=== PATIENT | female | born 1925 | race Caucasian/White ===

== ENCOUNTER 2016-11-22 00:24 | Inpatient (IN) | payer MEDICARE, MEDICAID ==
[~2016-11-22] VITALS: Ht 160 cm; Wt 88.0 kg
[2016-11-22] MEDS ORDERED: ACETAMINOPHEN 325MG TABLET PO STA (01:31)
[2016-11-22] MEDS ORDERED: NITROGLYCERIN 0.4MG TABLET SL SL PRN (01:45)
[2016-11-22] MEDS ORDERED: AZITHROMYCIN 500 MG in DEXT 5% WATER 250 ML IV ONE (01:45)
[2016-11-22] MEDS ORDERED: ACETAMINOPHEN 325MG TABLET PO PRN (01:45)
[2016-11-22] MEDS ORDERED: IPRATROPIUM/ALBUTEROL 0.5-3(2.5)MG/3ML NEB INH PRN (01:45)
[2016-11-22] MEDS ORDERED: MAGNESIUM/ALUMINUM HYDROXIDE/SIMETHICONE 30ML UDC PO PRN (01:45)
[2016-11-22] MEDS ORDERED: GUAIFENESIN 200MG/10ML SUGAR FREE UDC PO PRN (01:45)
[2016-11-22] MEDS ORDERED: MORPHINE SULFATE 4 MG/ML CPJ (NOT FOR IM USE) IV PRN (01:45)
[2016-11-22] MEDS ORDERED: ONDANSETRON HCL 4MG/2ML VIAL IV PRN (01:45)
[2016-11-22] MEDS ORDERED: TRAMADOL 50MG TABLET PO PRN (01:45)
[2016-11-22] MEDS ORDERED: CLONIDINE 0.1MG TABLET PO PRN (01:45)
[2016-11-22] MEDS ORDERED: CEFTRIAXONE 1 G PREMIX 50 ML IV ONE (01:45)
[2016-11-22 02:10] LABS: BG BASE EXCESS 2.5 mmol/L (-2.0-2.0); BG CARBOXYHEMOGLOBIN 0.5 % (0.5-1.5); BG DEOXYHEMOGLOBIN 4.8 % (0.0-5.0); BG FRACTION INSPIRED OXYGEN 28; BG METHEMOGLOBIN 0.3 % (0.0-1.5); BG OXYGEN SATURATION 95.2 % (92.0-98.5); BG OXYHEMOGLOBIN 94.4 % (94.0-97.0); BG PCO2 46.7 mmHg (35.0-45.0); BG PH 7.395 (7.350-7.450); BG PO2 77.6 mmHg (75.0-100.0); BG SAMPLE SITE RIGHT BRACHIAL; BG TOTAL HEMOGLOBIN 12.1 g/dL (12.0-18.0); BG VENT MODE NASAL CANNULA
[2016-11-22 02:19] LABS: CHLORIDE 91 mEq/L (98-107)
[2016-11-22 02:28] LABS: CARBON DIOXIDE 33 mEq/L (21-32); HDL CHOLESTEROL 49 mg/dL (40-59); LDL CHOLESTEROL 91 mg/dL (5-100)
[2016-11-22 02:31] LABS: BASOPHILS % 0.3 % (0.0-2.0); EOSINOPHILS % 0.2 % (0.0-5.0); HEMOGLOBIN. 11.8 g/dL (12.0-16.0); LYMPHOCYTES % 8.2 % (20.0-50.0); MEAN CORPUSCULAR VOLUME 100.3 fL (81.0-99.0); MEAN PLATELET VOLUME 8.5 fl (7.4-10.4); MONOCYTES % 4.7 % (2.0-8.0); NEUTROPHILS % 86.6 % (40.0-76.0); PLATELET 270 x1000/uL (130-400); RED BLOOD CELL COUNT 3.58 mill/uL (4.2-5.4); RED CELL DISTRIBUTION WIDTH 16.1 % (11.6-14.6)
[2016-11-22 04:05] LABS: CLARITY URINE CLEAR (CLEAR); COLOR URINE YELLOW (YELLOW); GLUCOSE URINE NEGATIVE (NEGATIVE); KETONES URINE NEGATIVE (NEGATIVE); LEUKOCYTE ESTERASE URINE NEGATIVE (NEGATIVE); NITRITE URINE NEGATIVE (NEGATIVE); OCCULT BLOOD URINE 1+ (NEGATIVE); PH URINE 5.5 (4.5-8.0); PROTEIN URINE 3+ (NEGATIVE); SPECIFIC GRAVITY URINE 1.017 (1.005-1.030); UROBILINOGEN URINE 0.2 E.U./dL (0.2-1.0)
[2016-11-22 06:25] LABS: CREATINE KINASE MB FRACTION 1.8 ng/mL (0.5-3.6)
[2016-11-22 07:08] LABS: TROPONIN I 0.53 ng/mL (0.00-0.04)
[2016-11-22] MEDS ORDERED: NA PHOS,M-B/NA PHOS,DI-BA ENEMA 118ML PR PRN (09:00)
[2016-11-22] MEDS ORDERED: CEFTRIAXONE 1 G PREMIX 50 ML IV SCH (09:00)
[2016-11-22] MEDS ORDERED: ASPIRIN 325MG EC TABLET PO SCH (09:00)
[2016-11-22 11:18] VITALS: BP 127/49
[2016-11-22 11:30] VITALS: BP 127/49
[2016-11-22] MEDS: ZINC SULFATE 220 MG ( 50 ) CAPSULE PO SCH (12:39)
[2016-11-22] MEDS: GUAIFENESIN/DM 600MG/30MG ER TAB 12HR PO SCH ×2 (12:39→20:52)
[2016-11-22] MEDS: PANTOPRAZOLE SODIUM 40 MG/VIAL IV SCH (12:39)
[2016-11-22] MEDS: DILTIAZEM HCL 30MG TABLET PO SCH ×2 (12:40→17:37)
[2016-11-22] MEDS: ENOXAPARIN 40MG/0.4ML SYR SUBCUT SCH (12:40)
[2016-11-22] MEDS: FUROSEMIDE 40MG/4ML VIAL IVP SCH (12:40)
[2016-11-22 15:35] LABS: CREATINE KINASE MB FRACTION 3.6 ng/mL (0.5-3.6)
[2016-11-22] MEDS ORDERED: AMLO2.5T45 PO (15:37)
[2016-11-22] MEDS ORDERED: ZOLP5TAB2 PO (15:37)
[2016-11-22] MEDS ORDERED: LOSA100T14 PO (15:37)
[2016-11-22] MEDS ORDERED: AMIT25TA9 PO (15:37)
[2016-11-22] MEDS ORDERED: FURO40TA5 PO (15:37)
[2016-11-22] MEDS ORDERED: ASPI-1159 PO (15:37)
[2016-11-22] MEDS ORDERED: HYDR-4134 PO (15:37)
[2016-11-22] MEDS ORDERED: ATOR10TA69 PO (15:37)
[2016-11-22 15:38] LABS: TROPONIN I 1.5 ng/mL (0.00-0.04)
[2016-11-22 16:00] VITALS: BP 132/55
[2016-11-22] MEDS: ASPIRIN 81MG EC TABLET PO SCH (17:37)
[2016-11-22] MEDS ORDERED: DEXTROSE 50% WATER 50ML SYRINGE IV PRN (18:45)
[2016-11-22 19:17] LABS: TOTAL IRON BINDING CAPACITY 338 ug/dL (250-450)
[2016-11-22 20:00] VITALS: BP 101/43
[2016-11-22] MEDS ORDERED: ZOLPIDEM TARTRATE 5MG TABLET PO PRN (20:00)
[2016-11-22] MEDS: INSULIN LISPRO 100 UNITS/ML SUBCUT SCH (20:15)
[2016-11-22] MEDS: BLOOD SUGAR DIAGNOSTIC STRIP TEST SCH (20:15)
[2016-11-22] MEDS: CEFTRIAXONE 1 G PREMIX 50 ML IV SCH (20:52)
[2016-11-22] MEDS: ZOLPIDEM TARTRATE 5MG TABLET PO PRN (20:52)
[2016-11-22] MEDS ORDERED: AZITHROMYCIN 500 MG in DEXT 5% WATER 250 ML IV SCH (22:00)
[2016-11-23] VITALS: BP 125/40
[2016-11-23] MEDS: DILTIAZEM HCL 30MG TABLET PO SCH ×6 (00:40→21:43)
[2016-11-23 04:00] VITALS: BP 136/51
[2016-11-23] MEDS: BLOOD SUGAR DIAGNOSTIC STRIP TEST SCH ×4 (06:20→21:53)
[2016-11-23 06:35] LABS: BASOPHILS % 0.4 % (0.0-2.0); EOSINOPHILS % 2.1 % (0.0-5.0); HEMATOCRIT. 31.2 % (36.0-48.0); HEMOGLOBIN. 10.2 g/dL (12.0-16.0); MEAN CORPUSCULAR HEMOGLOBIN 33.1 pg (28.0-32.0); MEAN CORPUSCULAR VOLUME 100.7 fL (81.0-99.0); MEAN PLATELET VOLUME 8.7 fl (7.4-10.4); NEUTROPHILS % 76.5 % (40.0-76.0); PLATELET 246 x1000/uL (130-400); RED CELL DISTRIBUTION WIDTH 16.4 % (11.6-14.6)
[2016-11-23 06:52] LABS: CARBON DIOXIDE 35 mEq/L (21-32); CHLORIDE 94 mEq/L (98-107); CREATINE KINASE MB FRACTION 2.7 ng/mL (0.5-3.6); LDL CHOLESTEROL 67 mg/dL (5-100)
[2016-11-23 07:07] LABS: CREATINE KINASE 111 IU/L (26-192); HDL CHOLESTEROL 45 mg/dL (40-59)
[2016-11-23 07:27] LABS: TROPONIN I 0.79 ng/mL (0.00-0.04)
[2016-11-23] MEDS: INSULIN LISPRO 100 UNITS/ML SUBCUT SCH ×4 (07:50→21:00)
[2016-11-23] MEDS: PANTOPRAZOLE SODIUM 40 MG/VIAL IV SCH (08:45)
[2016-11-23] MEDS: ENOXAPARIN 40MG/0.4ML SYR SUBCUT SCH (08:46)
[2016-11-23] MEDS: FUROSEMIDE 40MG/4ML VIAL IVP SCH (08:46)
[2016-11-23] MEDS: ZINC SULFATE 220 MG ( 50 ) CAPSULE PO SCH (08:46)
[2016-11-23] MEDS: ASPIRIN 81MG EC TABLET PO SCH ×2 (08:46→17:33)
[2016-11-23] MEDS: GUAIFENESIN/DM 600MG/30MG ER TAB 12HR PO SCH ×2 (08:48→21:41)
[2016-11-23 08:57] VITALS: BP 131/60
[2016-11-23 12:52] VITALS: BP 115/32
[2016-11-23] MEDS ORDERED: POTASSIUM CHLORIDE 20MEQ TABLET SR PO SCH (13:15)
[2016-11-23] MEDS: AZITHROMYCIN 500 MG in DEXT 5% WATER 250 ML IV SCH (15:09)
[2016-11-23 17:17] VITALS: BP 113/48
[2016-11-23] MEDS: ACYCLOVIR 400 MG TABLET PO SCH ×2 (17:34→21:51)
[2016-11-23 20:00] VITALS: BP 156/55
[2016-11-23] MEDS: ZOLPIDEM TARTRATE 5MG TABLET PO PRN (21:41)
[2016-11-23] MEDS: CEFTRIAXONE 1 G PREMIX 50 ML IV SCH (21:42)
[2016-11-24] VITALS: BP 133/52
[2016-11-24] MEDS: DIPHENHYDRAMINE 50MG/ML VIAL IV PRN (01:25)
[2016-11-24 04:00] VITALS: BP 129/66
[2016-11-24] MEDS: BLOOD SUGAR DIAGNOSTIC STRIP TEST SCH ×4 (06:40→20:24)
[2016-11-24] MEDS: ACYCLOVIR 400 MG TABLET PO SCH ×5 (06:57→21:49)
[2016-11-24] MEDS: DILTIAZEM HCL 30MG TABLET PO SCH ×3 (06:57→17:42)
[2016-11-24 07:11] LABS: EOSINOPHILS % 1.2 % (0.0-5.0); HEMATOCRIT. 33.4 % (36.0-48.0); HEMOGLOBIN. 10.8 g/dL (12.0-16.0); LYMPHOCYTES % 18.5 % (20.0-50.0); MEAN CORPUSCULAR HEMOGLOBIN 32.6 pg (28.0-32.0); MEAN CORPUSCULAR VOLUME 101.1 fL (81.0-99.0); NEUTROPHILS % 73.3 % (40.0-76.0); PLATELET 269 x1000/uL (130-400); RED CELL DISTRIBUTION WIDTH 16.2 % (11.6-14.6)
[2016-11-24 07:19] LABS: CARBON DIOXIDE 32 mEq/L (21-32); CHLORIDE 96 mEq/L (98-107)
[2016-11-24 07:23] LABS: TROPONIN I 0.33 ng/mL (0.00-0.04)
[2016-11-24 08:00] VITALS: BP 124/69
[2016-11-24] MEDS: INSULIN LISPRO 100 UNITS/ML SUBCUT SCH ×4 (08:38→20:24)
[2016-11-24] MEDS: AZITHROMYCIN 500 MG in DEXT 5% WATER 250 ML IV SCH (09:42)
[2016-11-24] MEDS: FUROSEMIDE 40MG/4ML VIAL IVP SCH (09:42)
[2016-11-24] MEDS: GUAIFENESIN/DM 600MG/30MG ER TAB 12HR PO SCH ×2 (09:43→20:44)
[2016-11-24] MEDS: ENOXAPARIN 40MG/0.4ML SYR SUBCUT SCH (09:43)
[2016-11-24] MEDS: ASPIRIN 81MG EC TABLET PO SCH ×2 (09:43→17:42)
[2016-11-24] MEDS: ZINC SULFATE 220 MG ( 50 ) CAPSULE PO SCH (09:43)
[2016-11-24] MEDS: FAMOTIDINE 20MG TABLET PO SCH ×2 (09:43→20:45)
[2016-11-24 12:00] VITALS: BP 118/58
[2016-11-24] MEDS: DOCUSATE SODIUM 100MG CAPSULE PO PRN (12:19)
[2016-11-24 16:00] VITALS: BP 109/64
[2016-11-24 20:00] VITALS: BP 132/63
[2016-11-24] MEDS: CEFTRIAXONE 1 G PREMIX 50 ML IV SCH (20:38)
[2016-11-24] MEDS: ZOLPIDEM TARTRATE 5MG TABLET PO PRN (22:11)
[2016-11-25] VITALS: BP 129/65
[2016-11-25] MEDS: DILTIAZEM HCL 30MG TABLET PO SCH ×5 (00:30→21:35)
[2016-11-25 04:00] VITALS: BP 130/70
[2016-11-25] MEDS: ACYCLOVIR 400 MG TABLET PO SCH ×5 (06:00→21:25)
[2016-11-25] MEDS: BLOOD SUGAR DIAGNOSTIC STRIP TEST SCH ×4 (06:01→21:26)
[2016-11-25 07:47] VITALS: BP 148/50
[2016-11-25] MEDS: INSULIN LISPRO 100 UNITS/ML SUBCUT SCH ×4 (07:50→21:00)
[2016-11-25] MEDS: ZINC SULFATE 220 MG ( 50 ) CAPSULE PO SCH (09:36)
[2016-11-25] MEDS: ASPIRIN 81MG EC TABLET PO SCH ×2 (09:36→17:59)
[2016-11-25] MEDS: GUAIFENESIN/DM 600MG/30MG ER TAB 12HR PO SCH ×2 (09:36→21:25)
[2016-11-25] MEDS: FAMOTIDINE 20MG TABLET PO SCH ×2 (09:36→21:25)
[2016-11-25] MEDS: FUROSEMIDE 40MG/4ML VIAL IVP SCH (09:36)
[2016-11-25] MEDS: AZITHROMYCIN 500 MG in DEXT 5% WATER 250 ML IV SCH (09:37)
[2016-11-25] MEDS: ENOXAPARIN 40MG/0.4ML SYR SUBCUT SCH (09:37)
[2016-11-25 11:49] VITALS: BP 120/42
[2016-11-25] MEDS: DOCUSATE SODIUM 100MG CAPSULE PO PRN (15:06)
[2016-11-25 16:00] VITALS: BP 124/51
[2016-11-25 20:00] VITALS: BP 103/49
[2016-11-25] MEDS: CEFTRIAXONE 1 G PREMIX 50 ML IV SCH (21:25)
[2016-11-25] MEDS: DIPHENHYDRAMINE 50MG/ML VIAL IV PRN (21:26)
[2016-11-25] MEDS: ZOLPIDEM TARTRATE 5MG TABLET PO PRN (21:27)
[2016-11-26] VITALS: BP 101/49
[2016-11-26 04:00] VITALS: BP 120/60
[2016-11-26] MEDS: BLOOD SUGAR DIAGNOSTIC STRIP TEST SCH ×4 (06:33→21:00)
[2016-11-26] MEDS: DILTIAZEM HCL 30MG TABLET PO SCH ×3 (06:33→18:31)
[2016-11-26] MEDS: ACYCLOVIR 400 MG TABLET PO SCH ×5 (06:33→21:33)
[2016-11-26] MEDS: INSULIN LISPRO 100 UNITS/ML SUBCUT SCH ×4 (07:50→21:00)
[2016-11-26 08:01] VITALS: BP 131/61
[2016-11-26] MEDS: ASPIRIN 81MG EC TABLET PO SCH ×2 (09:09→18:31)
[2016-11-26] MEDS: GUAIFENESIN/DM 600MG/30MG ER TAB 12HR PO SCH ×2 (09:09→21:31)
[2016-11-26] MEDS: ZINC SULFATE 220 MG ( 50 ) CAPSULE PO SCH (09:09)
[2016-11-26] MEDS: FAMOTIDINE 20MG TABLET PO SCH ×2 (09:09→21:31)
[2016-11-26] MEDS: AZITHROMYCIN 500 MG in DEXT 5% WATER 250 ML IV SCH (09:09)
[2016-11-26] MEDS: FUROSEMIDE 40MG/4ML VIAL IVP SCH (09:09)
[2016-11-26] MEDS: ENOXAPARIN 40MG/0.4ML SYR SUBCUT SCH (09:10)
[2016-11-26 12:00] VITALS: BP 123/57
[2016-11-26] MEDS ORDERED: DILTIAZEM HCL 5MG/ML 5ML VIAL IV PRN (12:15)
[2016-11-26 15:51] VITALS: BP 147/67
[2016-11-26 20:53] VITALS: BP 129/56
[2016-11-26] MEDS: LACTULOSE 20G/30ML UDC PO SCH (21:33)
[2016-11-26] MEDS: ZOLPIDEM TARTRATE 5MG TABLET PO PRN (21:33)
[2016-11-26] MEDS: CEFTRIAXONE 1 G PREMIX 50 ML IV SCH (22:02)
[2016-11-27] VITALS: BP 134/81
[2016-11-27] MEDS: DILTIAZEM HCL 30MG TABLET PO SCH ×3 (00:24→14:33)
[2016-11-27 04:00] VITALS: BP 152/67
[2016-11-27 07:03] LABS: BASOPHILS % 0.4 % (0.0-2.0); EOSINOPHILS % 2.5 % (0.0-5.0); HEMATOCRIT. 34.4 % (36.0-48.0); HEMOGLOBIN. 11.1 g/dL (12.0-16.0); LYMPHOCYTES % 20.6 % (20.0-50.0); MEAN CORPUSCULAR HEMOGLOBIN 32.7 pg (28.0-32.0); MEAN CORPUSCULAR VOLUME 101.4 fL (81.0-99.0); MEAN PLATELET VOLUME 8.7 fl (7.4-10.4); MONOCYTES % 8.7 % (2.0-8.0); NEUTROPHILS % 67.8 % (40.0-76.0); PLATELET 283 x1000/uL (130-400); RED BLOOD CELL COUNT 3.39 mill/uL (4.2-5.4); RED CELL DISTRIBUTION WIDTH 15.8 % (11.6-14.6)
[2016-11-27] MEDS: ACYCLOVIR 400 MG TABLET PO SCH ×3 (07:10→14:32)
[2016-11-27] MEDS: LACTULOSE 20G/30ML UDC PO SCH (07:10)
[2016-11-27] MEDS: BLOOD SUGAR DIAGNOSTIC STRIP TEST SCH ×2 (07:10→11:32)
[2016-11-27] MEDS: INSULIN LISPRO 100 UNITS/ML SUBCUT SCH ×2 (07:14→11:32)
[2016-11-27 07:38] LABS: CARBON DIOXIDE 37 mEq/L (21-32); CHLORIDE 97 mEq/L (98-107)
[2016-11-27 08:00] VITALS: BP 128/63
[2016-11-27] MEDS: AZITHROMYCIN 500 MG in DEXT 5% WATER 250 ML IV SCH (09:16)
[2016-11-27] MEDS: FUROSEMIDE 40MG/4ML VIAL IVP SCH (09:16)
[2016-11-27] MEDS: ENOXAPARIN 40MG/0.4ML SYR SUBCUT SCH (09:16)
[2016-11-27] MEDS: ASPIRIN 81MG EC TABLET PO SCH (09:16)
[2016-11-27] MEDS: GUAIFENESIN/DM 600MG/30MG ER TAB 12HR PO SCH (09:16)
[2016-11-27] MEDS: ZINC SULFATE 220 MG ( 50 ) CAPSULE PO SCH (09:16)
[2016-11-27] MEDS: FAMOTIDINE 20MG TABLET PO SCH (09:16)
[2016-11-27 11:50] VITALS: BP 122/59
[2016-11-27 13:46] VITALS: BP 122/59
[2016-11-27] MEDS ORDERED: FUROSEMIDE 40MG/4ML VIAL IVP SCH (16:00)
== END 2016-11-27 15:25 | disposition home health service (06) | DRG 871 ==
LOC: ER 00:30 → SUPCPDRO 01:37 → 6WST 03:03 → EDBEDREQ 03:05 → EDBEDREQTM 03:05 → ENRESERV 10:01 → 6WST 11-23 21:00
PROVIDERS: ADMIT Internal Medicine; ATTEND Internal Medicine
DX: A41.9 Sepsis, unspecified organism (principal); J18.9 Pneumonia, unspecified organism; I21.4 Non-ST elevation (NSTEMI) myocardial infarction; J96.01 Acute respiratory failure with hypoxia; I50.33 Acute on chronic diastolic (congestive) heart failure; E44.0 Moderate protein-calorie malnutrition; I11.0 Hypertensive heart disease with heart failure; E87.1 Hypo-osmolality and hyponatremia; F03.90 Unspecified dementia, unspecified severity, without behavioral disturbance, psychotic disturbance, mood disturbance, and anxiety; B02.9 Zoster without complications; N39.0 Urinary tract infection, site not specified; I27.2 Other secondary pulmonary hypertension; D64.9 Anemia, unspecified; E66.9 Obesity, unspecified; E78.00 Pure hypercholesterolemia, unspecified; R26.9 Unspecified abnormalities of gait and mobility; R73.9 Hyperglycemia, unspecified; E78.5 Hyperlipidemia, unspecified; M17.10 Unilateral primary osteoarthritis, unspecified knee; I48.91 Unspecified atrial fibrillation; I25.10 Atherosclerotic heart disease of native coronary artery without angina pectoris; Z79.899 Other long term (current) drug therapy; Z79.01 Long term (current) use of anticoagulants; Z68.34 Body mass index [BMI] 34.0-34.9, adult; Z79.82 Long term (current) use of aspirin; Z99.81 Dependence on supplemental oxygen; Z90.49 Acquired absence of other specified parts of digestive tract
CPT/HCPCS: 36415; 36600; 71010; 80048; 80053; 80061; 81001; 82375; 82550; 82553; 82607; 82746; 82805; 82962; 83036; 83540; 83550; 83605; 83735; 83880; 84443; 84484; 85025; 85379; 87040; 87086; 92610; 93005; 93306; 93970; 96365; 96366; 96367; 97162; 97167; 97530; 99291; A6261; C9113; J0456; J0696; J1200; J1650; J1815; J1940; J2405; J7050; J7060